=== PATIENT | male | born 1950 | race Caucasian/White ===

== ENCOUNTER 2018-05-22 13:38 | Emergency (ER) | payer OTHER ==
[~2018-05-22] VITALS: Ht 185.4 cm; Wt 83.9 kg
[2018-05-22 13:48] VITALS: BP_SYST 118
[2018-05-22] MEDS ORDERED: DIPH-TET-PERTUS Vaccine 0.5 ML VIAL (ADACEL) IM ONE (14:45)
[2018-05-22] MEDS ORDERED: BACITRACIN 1 GM OINT TP ONE (14:45)
[2018-05-22] MEDS ORDERED: LIDOCAINE 1% 10 MG/ML, 20 ML MDV IJ ONE (14:45)
[2018-05-22 15:30] VITALS: BP_SYST 120
== END 2018-05-22 15:30 | disposition home or self-care (01) ==
LOC: SED 13:38
DX: S61.210A Laceration without foreign body of right index finger without damage to nail, initial encounter (principal); E11.9 Type 2 diabetes mellitus without complications; R03.0 Elevated blood-pressure reading, without diagnosis of hypertension; W23.0XXA Caught, crushed, jammed, or pinched between moving objects, initial encounter; Y93.89 Activity, other specified; Y92.89 Other specified places as the place of occurrence of the external cause; Y99.8 Other external cause status
CPT/HCPCS: 12002; 73140; 99283; J2001; 90715

== ENCOUNTER 2018-05-24 12:59 | Emergency (ER) | payer OTHER ==
[~2018-05-24] VITALS: Ht 185.4 cm; Wt 83.9 kg
[2018-05-24 13:05] VITALS: BP_SYST 123
--- NOTE | 2018-05-24 13:10 | NUR ---
Patient to ER bed 8 to gown for evaluation. Side rails up. Report given to Laura SARMIENTO.
--- NOTE | 2018-05-24 13:13 | NUR ---
Shahbaz CRANE at bedside examining patient.
--- NOTE | 2018-05-24 13:14 | NUR ---
Patient presents to the ER for wound check. Patient states he sustained Right index finger injury thursday and was treated in [facility] ER. Patient states pain is 4/10 but tolerable. patient ambulatory to ER, A&O x4, VS stable, patient afebrile
--- NOTE | 2018-05-24 13:25 | NUR ---
Joe tranjane in ED - 05/24/[address] at [address] Avalos at bedside for eye exam of patient
--- NOTE | 2018-05-24 13:35 | NUR ---
RAN CRANE at bedside examining patient.Treatment of trephination of right index finger. patient torated well. dressed site with non-adhering dressing and wrapped with kerlex, pulses WNL
[2018-05-24] MEDS ORDERED: BACITRACIN 1 GM OINT TP ONE (13:37)
--- NOTE | 2018-05-24 13:45 | NUR ---
Patient given written and verbal discharge instructions and verbalizes understanding. ER MD discussed with patient the results and treatment provided. Patient in stable condition. ID arm band removed No Rx given. Patient educated on pain management and to follow up with PMD. Pain Scale . Opportunity for questions provided and answered. Medication side effect fact sheet provided.
== END 2018-05-24 13:47 | disposition home or self-care (01) ==
LOC: SED 12:59
DX: S60.121A Contusion of right index finger with damage to nail, initial encounter (principal); S61.210D Laceration without foreign body of right index finger without damage to nail, subsequent encounter; E11.9 Type 2 diabetes mellitus without complications; W23.0XXD Caught, crushed, jammed, or pinched between moving objects, subsequent encounter
CPT/HCPCS: 99283

== ENCOUNTER 2018-06-07 15:04 | Emergency (ER) | payer OTHER ==
[~2018-06-07] VITALS: Ht 185.4 cm; Wt 86.2 kg
[2018-06-07 15:20] VITALS: BP_SYST 135
--- NOTE | 2018-06-07 15:25 | NUR ---
Patient triaged and placed in waiting room. VSS and patient appears in no acute distress at this time. Accompanied by self, awaiting available bed, and MD notified of need for MSE.
[2018-06-07 19:22] VITALS: BP_SYST 128
--- NOTE | 2018-06-07 19:22 | NUR ---
Patient given written and verbal discharge instructions and verbalizes understanding. ER MD discussed with patient the results and treatment provided. Patient in stable condition. ID arm band removed. Rx of Tylenol ES given. Patient educated on pain management and to follow up with PMD. Pain Scale 2/10 tolerable to patient. Opportunity for questions provided and answered. Medication side effect fact sheet provided.
== END 2018-06-07 19:22 | disposition home or self-care (01) ==
LOC: SED 15:04
DX: S61.210D Laceration without foreign body of right index finger without damage to nail, subsequent encounter (principal); E11.9 Type 2 diabetes mellitus without complications; E78.5 Hyperlipidemia, unspecified; Z90.89 Acquired absence of other organs; Z86.79 Personal history of other diseases of the circulatory system; W23.0XXD Caught, crushed, jammed, or pinched between moving objects, subsequent encounter
CPT/HCPCS: 73140-TC; 99283

== ENCOUNTER 2018-07-01 13:11 | Emergency (ER) | payer OTHER ==
[~2018-07-01] VITALS: Ht 185.4 cm; Wt 86.2 kg
[2018-07-01 13:41] VITALS: BP_SYST 142
--- NOTE | 2018-07-01 13:53 | NUR ---
Patient to ER bed H1 to gown for evaluation. Side rails up.
--- NOTE | 2018-07-01 13:53 | NUR ---
Patient arrived via POV, AAOx4, and ambulatory with steady gait. Patient c/c 1st finger pain, patient had sutures placed on 01 of june, removed. Patient states he feels like his finger has not been healing. Patient has purple nail bed, bruising to finger. Drying and scaling texture to finger, with sutures wound dry. Patient states no puss, or drainage, no bleeding. Patient has history of diabetes. Patient states pain only present with pressing with finger tip. Daughter at bedside for comfort. Will continue to follow up and monitor.
--- NOTE | 2018-07-01 13:56 | NUR ---
ER at bedside examining patient.
[2018-07-01 14:30] VITALS: BP_SYST 142
--- NOTE | 2018-07-01 14:30 | NUR ---
Patient given written and verbal discharge instructions and verbalizes understanding. ER MD discussed with patient the results and treatment provided. Patient in stable condition. ID arm band removed. Rx of Augmentin and Tylenol given. Patient educated on pain management and to follow up with PMD. Pain Scale 2/10. Opportunity for questions provided and answered. Medication side effect fact sheet provided.
== END 2018-07-01 14:30 | disposition home or self-care (01) ==
LOC: SED 13:11
DX: M79.644 Pain in right finger(s) (principal); R03.0 Elevated blood-pressure reading, without diagnosis of hypertension; S61.210D Laceration without foreign body of right index finger without damage to nail, subsequent encounter; S60.121D Contusion of right index finger with damage to nail, subsequent encounter; W23.0XXD Caught, crushed, jammed, or pinched between moving objects, subsequent encounter
CPT/HCPCS: 99283

== ENCOUNTER 2021-01-26 10:40 | Emergency (ER) | payer OTHER ==
[~2021-01-26] VITALS: Ht 185.4 cm; Wt 85.3 kg
[2021-01-26 11:04] VITALS: BP_SYST 130
--- NOTE | 2021-01-26 11:04 | NUR ---
Patient to ER bed 3 to gown for evaluation. Side rails up. Vital signs taken and recorded
--- NOTE | 2021-01-26 11:05 | NUR ---
Came in ER ambulatory from home this 70 year old male, AAOX4, breathing spontaneously at room air, not in distress noted, steady gait, skin warm to touch. With chief complaints of rt 2nd toe redness since last night, denies trauma, Hx of Diabetes on Metformin, Chronic kidney disease, pyloric stenosis, CAD with 2009, s/p sx rupture appendix. Vital signs stable
--- NOTE | 2021-01-26 11:36 | NUR ---
Seen and examined by Dr. Santos
--- NOTE | 2021-01-26 11:45 | NUR ---
communications tech at bedside, blood drawn
[2021-01-26 12:07] LABS: BASOPHILS % (AUTO) 0.5 % (0.0-2.0); EOSINOPHILS # (AUTO) 0.1 K/uL (0.0-0.4); EOSINOPHILS % (AUTO) 1.1 % (0.0-4.0); HEMATOCRIT 43.7 % (36-54); LYMPHOCYTES # (AUTO) 2.1 K/uL (1.0-5.5); LYMPHOCYTES % (AUTO) 26.8 % (20.5-51.5); MEAN CORPUSCULAR HEMOGLOBIN 31 pg (27-31); MEAN CORPUSCULAR HGB CONC 34 % (32-36); MEAN CORPUSCULAR VOLUME 90 fL (79.0-98.0); MONOCYTES # (AUTO) 0.6 K/uL (0.0-1.0); NEUTROPHILS # (AUTO) 4.9 K/uL (1.8-7.7); NEUTROPHILS % (AUTO) 63.6 % (40.0-70.0); PLATELET COUNT (AUTO) 230 K/uL (130-430); RED BLOOD CELL COUNT(AUTO) 4.88 MIL/uL (4.2-6.2); RED CELL DISTRIBUTION WIDTH 13.3 % (9.0-15.0); WHITE BLOOD COUNT (AUTO) 7.7 K/uL (4.8-10.8)
--- NOTE | 2021-01-26 12:10 | NUR ---
Right toe Xray done at bedside
[2021-01-26 12:55] LABS: ERYTHROCYTE SEDIMENTATION RATE 5 MM/HR (0-15)
--- NOTE | 2021-01-26 13:20 | NUR ---
Re-assesed by Dr. Santos, for discharge
[2021-01-26] MEDS ORDERED: CEPH500C2 PO (13:25)
[2021-01-26 13:36] VITALS: BP_SYST 130
--- NOTE | 2021-01-26 13:36 | NUR ---
Patient given written and verbal discharge instructions and verbalizes understanding. ER MD discussed with patient the results and treatment provided. Patient in stable condition. ID arm band removed. Rx of Cephalixen given. Patient educated on pain management and to follow up with PMD. Pain Scale 0/10. Opportunity for questions provided and answered. Medication side effect fact sheet provided.
== END 2021-01-26 13:36 | disposition home or self-care (01) ==
LOC: SED 10:40
DX: L98.8 Other specified disorders of the skin and subcutaneous tissue (principal); E11.9 Type 2 diabetes mellitus without complications
CPT/HCPCS: 36415; 82962; 85025; 85651-TC; 86140; 99284